=== PATIENT | male | born 1990 | race Caucasian/White ===

== ENCOUNTER 2019-06-27 17:59 | Emergency (ER) | payer OTHER ==
[~2019-06-27] VITALS: Ht 180.3 cm; Wt 72.6 kg
[2019-06-28] MEDS ORDERED: PEPCID40 MG PO (02:08)
[2019-06-28] MEDS ORDERED: ZOFRAN4 MG PO (02:08)
== END 2019-06-28 02:57 | disposition home or self-care (01) ==
LOC: ER 17:59
DX: K29.60 Other gastritis without bleeding (principal)